=== PATIENT | female | born 1970 | race Caucasian/White ===

== ENCOUNTER 2017-01-13 16:55 | Emergency (ER) | payer MEDICAID ==
[~2017-01-13] VITALS: Ht 172.7 cm; Wt 77.1 kg
[~2017-01-13 16:55] MED LIST: ALPRAZOLAM2 MG PO; ATORVASTATIN CA20 M1 PO; CARAFATE1 GM PO; CETIRIZINE HYDR10 MG OR; COLACE GENERIC100 MG PO; ETODOLAC400 MG PO; HYDRALAZINE HCL10 MG OR; HYDROCHLOROTH12.5 M1 PO; LANSOPRAZOLE15 MG PO; LINZESS290 MCG PO; PROPRANOLOL HCL60 MG PO; TRAMADOL 50MG T1 PAK PO
--- NOTE | 2017-01-13 17:32 | Urgent Treatment Center Report ---
History of Present Issue Date/Time Seen by Provider 01/13/17 1725 Visit Reason Pt arrived:Walked Presenting Problem:PT STATES TWISTING HER R ANKLE ON A STEP AT HER HOUSE AT 1530. STATES TAKING IBUPROFEN IMMEDIATELY AFTERWARDS. STATES SURGERY TO SAME ANKLE TWO YEARS AGO AND WANTS TO BE SURE HARDWARE IS STILL INTACT Location if Accident:Home Onset of symptoms date/time:01/13/17 or onset unknown for: Have you (or family members/close friends) recently traveled outside the [place]? N If Yes, where/when: Have you had exposure to infectious disease within the past month? TB? Other? Specify: Source patient Exam Limitations no limitations Comment 46-year-old female presents today for RIGHT ankle pain. Patient states [facility] And [facility] RIGHT ankle. Patient states this is the same ankle she had surgery on 2 years ago with hardware she is concerned that the hardware might be affected. ALLERGIES Coded Allergies: acetaminophen (From LORTAB) (03/23/16) hydrocodone (From LORTAB) (03/23/16) Home Medications Reported Medications Alprazolam 2 MG PO QID #120 Hydralazine Hcl 10 MG OR BID #60 PROPRANOLOL HCL (Propranolol HCl ER) 60 MG PO DAILY #30 Atorvastatin Calcium 20 MG PO QHS #30 Lansoprazole 15 MG PO DAILY #30 Linaclotide (Linzess 290MCG) 290 MCG PO DAILY #30 Hydrochlorothiazide (Hydrochlorothiazide 12.5MG) 12.5 MG PO DAILY #30 Cetirizine Hcl (Cetirizine Hydrochloride) 10 MG OR DAILY #30 TRAMADOL THP (Tramadol 50MG Tablet Take Home Pack (10)) 50 MG PO Q6HP PRN PAIN #180 Docusate Sodium (Colace 100MG Cap) 100 MG PO BID #60 Sucralfate (Carafate) 1 GM PO BID #60 History Medical History General CAD? No Angina: No VA: No Hypertension? Yes Hyperlipidemia? Yes CHF? No DVT? No PE? No COPD? Yes Asthma? Yes Anemia? No GERD? No Gastric ulcers? No GI Bleed? No Hernia? No Thyroid Problems? No Hypothyroidism? No CVA? No Seizures? No Diabetes? No Renal Insuffiency? No UTI? Yes Stones? No BPH? No GB Disease: Yes Nephritic Syndrome? No Asplenia? No Hepatitis? No Sickle Cell Disease? No Arthritis? No Migraines? No Cataracts? No Glaucoma? No MRSA? No HIV? No TB? No Anxiety? Yes Depression? Yes Cancer? Yes Site: BREAST More? 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 2 or more SIRS Criteria Met? B/P:123/88 MAP:99 Creatinine >2.0? UA output<0.5ml/kg/hr for 2 hrs? Platelet count >100,000? Lactate >2.0mmol/1? INR >1.2 or PTT > than 60 sec? Evidence of Organ Dysfunction? Provider documented clinical suspician of infection? Sepsis Criteria Count: 2 Sepsis Risk: General Appearance normal appearance, no apparent distress Respiratory Status Yes: trachea midline, chest symmetrical, non tender chest. No: respiratory distress. Cardiovascular normal exam, regular rate/rhythm Extremities non-tender, normal range of motion, normal inspection, normal capillary refill, no pedal edema Neurologic alert, normal exam, oriented x 3 Medical Decision Making LABS/Meds/Orders Pt receiving controlled substance in ED? No Results/Orders Orders Procedure Date/time Status STABILIZE JOINT 01/14 1736 Active ANKLE-RT-3 VIEWS 01/13 1718 Active Departure Departure Time of Disposition 1736 Disposition DC Home or Self Care(routine) Clinical Impression Primary Impression: Ankle sprain Qualifiers: Encounter type: initial encounter Involved ligament of ankle: unspecified ligament Laterality: left Qualified Code: S93.402A - Sprain of unspecified ligament of left ankle, initial encounter Condition STABLE Referrals ABENA FAULKNER DPM Patient Instructions Ankle Sprain, DI for Ankle Sprain Additional Instructions Tylenol Motrin as needed for pain Tahir wrap Ice 20 minutes then removed may repeat for comfort Follow-up with orthopedic surgeon Symptoms worsen or do not improve return or be seen in the ER Discharge Counseling Counseled pt/family regarding diagnosis, test results, medications/RX, home care, follow up needs at [id number]
[2017-01-13 17:41] VITALS: BP 123/88
--- NOTE | 2017-01-13 20:15 | RADIOLOGY REPORT PS360 ---
ANKLE-RT-3 VIEWS COMPARISON: None HISTORY: Right ankle pain after twisting injury TECHNIQUE: AP lateral and oblique views FINDINGS: There is mild soft tissue swelling laterally. The medial and lateral malleolus appear intact and the ankle mortise is normal. There is orthopedic hardware in the talus and calcaneus with mild post traumatic and/or postsurgical deformity of the talus. IMPRESSION: Negative for acute fracture
[2017-02-02] MEDS ORDERED: MOTRIN 400MG.400 MG PO (19:40)
== END 2017-01-13 17:47 | disposition home or self-care (01) ==
LOC: UTC 16:55
DX: S93.402A Sprain of unspecified ligament of left ankle, initial encounter (principal); X50.1XXA Overexertion from prolonged static or awkward postures, initial encounter; Y92.9 Unspecified place or not applicable; F17.210 Nicotine dependence, cigarettes, uncomplicated; J44.9 Chronic obstructive pulmonary disease, unspecified; E78.5 Hyperlipidemia, unspecified; I10 Essential (primary) hypertension; Z79.891 Long term (current) use of opiate analgesic

== ENCOUNTER 2017-02-02 18:18 | Emergency (ER) | payer MEDICAID ==
[~2017-02-02] VITALS: Ht 172.7 cm; Wt 77.3 kg
--- NOTE | 2017-02-02 19:07 | Urgent Treatment Center Report ---
History of Present Issue Date/Time Seen by Provider 02/02/171906 Visit Reason Pt arrived:Walked Presenting Problem:PT STATES SHE FELL IN HER KITCHEN INJURING HER RT HAND AND HEAD Location if Accident: Onset of symptoms date/time:02/02/1710/14/1529 or onset unknown for: Have you (or family members/close friends) recently traveled outside the [place]? N If Yes, where/when: Have you had exposure to infectious disease within the past month? TB? Other? Specify: Patient states that she slipped while wearing flip flops in her kitchen and landed on her right hand and wrist and also bumped her head on the floor Denies LOC states that she just hit her head but her arm broke her fall. State that she doesn't have any swelling just hurts when she moves her wrist ALLERGIES Coded Allergies: acetaminophen (From LORTAB) (03/23/16) hydrocodone (From LORTAB) (03/23/16) Home Medications Reported Medications Alprazolam 2 MG PO QID #120 Hydralazine Hcl 10 MG OR BID #60 PROPRANOLOL HCL (Propranolol HCl ER) 60 MG PO DAILY #30 Atorvastatin Calcium 20 MG PO QHS #30 Lansoprazole 15 MG PO DAILY #30 Linaclotide (Linzess 290MCG) 290 MCG PO DAILY #30 Hydrochlorothiazide (Hydrochlorothiazide 12.5MG) 12.5 MG PO DAILY #30 Cetirizine Hcl (Cetirizine Hydrochloride) 10 MG OR DAILY #30 TRAMADOL THP (Tramadol 50MG Tablet Take Home Pack (10)) 50 MG PO Q6HP PRN PAIN #180 Docusate Sodium (Colace 100MG Cap) 100 MG PO BID #60 Sucralfate (Carafate) 1 GM PO BID #60 History Medical History General CAD? No Angina: No PA: No Hypertension? Yes Hyperlipidemia? Yes CHF? No DVT? No PE? No COPD? Yes Asthma? Yes Anemia? No GERD? No Gastric ulcers? No GI Bleed? No Hernia? No Thyroid Problems? No Hypothyroidism? No CVA? No Seizures? No Diabetes? No Renal Insuffiency? No UTI? Yes Stones? No BPH? No GB Disease: Yes Nephritic Syndrome? No Asplenia? No Hepatitis? No Sickle Cell Disease? No Arthritis? No Migraines? No Cataracts? No Glaucoma? No MRSA? No HIV? No TB? No Anxiety? Yes Depression? Yes Cancer? Yes Site: BREAST More? 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 Family History Family HX Diabetes No CAD Yes Hypertension Yes Hyperlipidemia Yes Cancer Yes TB No Social History Smoking Hx Smoker: Current Every Day Smoker Tobacco: Yes Type Cigarettes Packs/day < 1 Pack Alcohol Alcohol: No Review of Systems All Other Systems Reviewed and Negative Comment Pain in right wrist after falling in her kitchen at home Physical Exam Vital Signs Vital Signs Date Time Temp Pulse Resp B/P Pulse O2 O2 Flow FiO2 Ox Delivery Rate 02/02 1844 98.1 79 20 145/93 100 General Appearance normal appearance, no apparent distress Eye Exam - bilateral eye normal exam, bilateral eye PERRL, bilateral eye EOMI Ear, Nose, Throat small bruising noted on left side of forehead Respiratory Status Yes: trachea midline, chest symmetrical, non tender chest. No: respiratory distress. Cardiovascular normal exam, regular rate/rhythm, no peripheral edema Extremities Pain in right wrist area, no bruising no swelling Neurologic alert, normal exam, oriented x 3 Medical Decision Making LABS/Meds/Orders Pt receiving controlled substance in ED? No Results/Orders Orders Procedure Date/time Status UTC STABILIZE JOINT/AREA 02/02 1934 Active HAND-RT 3 VIEWS 02/02 1917 Active Departure Departure Time of Disposition 1935 Disposition DC Home or Self Care(routine) Clinical Impression Primary Impression: Wrist sprain Qualifiers: Encounter type: initial encounter Laterality: right Qualified Code: S63.501A - Unspecified sprain of right wrist, initial encounter Condition STABLE Referrals Keon OWENS,Andres LAFLEUR MD, PANCHO COLON (Family): 2 Days-Call Office Patient Instructions DI for Wrist Sprain Additional Instructions Follow up with family doctor Return if needed *RICE, Rest the extremity, Ice 15-20 minutes 3-4 times daily, Compress- wear the tahir wrap as discussed as much as possible to help reduce swelling and pain, Elevate the extremity when at rest *Tahir wrap is for support and help control swelling, use it except in the shower. Be sure that is not to tight but not to loose either *Elevate when resting *Ibuprofen 600-800mg every 6-8 hours as needed for pain an inflammation. If need something more can take Tylenol in between doses of Ibuprofen to help Immediately follow up for new or worsening of symptoms, or no noticeable improvement over the next 3-5 days Discharge Counseling Counseled pt/family regarding diagnosis, test results, medications/RX, home care, follow up needs Prescriptions Current Visit Scripts Ibuprofen (MOTRIN 400MG) 400 MG PO Q6HP PRN pain #40 TAB at 1940
[2017-02-02 19:43] VITALS: BP 145/93
--- NOTE | 2017-02-03 10:14 | RADIOLOGY REPORT PS360 ---
HAND-RT 3 VIEWS COMPARISON: Right hand 03/23/2016 HISTORY: Right hand pain after fall TECHNIQUE: AP lateral and oblique views FINDINGS: The carpal bones metacarpals and phalanges appear intact with no evidence of fracture. The soft tissues are normal and the no foreign bodies. IMPRESSION: Negative right hand
--- OUTSIDE RECORDS SUMMARY | 2017-02-09 10:05 | External Medical Summary Rpt ---
Author Author [employer], [employer] Organization [employer] Address Unknown Phone Unavailable
--- OUTSIDE RECORDS SUMMARY | 2017-02-09 10:05 | External Medical Summary Rpt | CCD ---
Demographics Preferred Language Malaysian Marital Status Unknown Spiritism Affiliation Unknown Race Unknown Ethnic Group Unknown Author Author , [employer]AM [employer] Address Unknown Phone Immunization No patient found.
--- OUTSIDE RECORDS SUMMARY | 2017-02-09 10:05 | External Medical Summary Rpt | CCD ---
Demographics Preferred Language Trinidadian Marital Status Unknown Jewish Affiliation Unknown Race Unknown Ethnic Group Unknown Author Author , [employer]AM [employer] Address Unknown Phone Immunization No patient found.
== END 2017-02-02 19:44 | disposition home or self-care (01) ==
LOC: UTC 18:18
PROC: 2W3CX1Z Immobilization of Right Lower Arm using Splint (ICD-10-PCS; principal; 2017-02-02)
DX: S63.501A Unspecified sprain of right wrist, initial encounter (principal); W01.0XXA Fall on same level from slipping, tripping and stumbling without subsequent striking against object, initial encounter; Y93.9 Activity, unspecified; Y92.000 Kitchen of unspecified non-institutional (private) residence as the place of occurrence of the external cause; I10 Essential (primary) hypertension; J44.9 Chronic obstructive pulmonary disease, unspecified; F17.210 Nicotine dependence, cigarettes, uncomplicated; E78.5 Hyperlipidemia, unspecified; Z85.3 Personal history of malignant neoplasm of breast; Z79.891 Long term (current) use of opiate analgesic; Z79.899 Other long term (current) drug therapy

== ENCOUNTER → 2017-02-21 | Outpatient (CLI) | payer MEDICAID ==
[~2017-02-21] MED LIST changes: +MOTRIN 400MG.400 MG PO
== END ==
LOC: RT 10:57
DX: R00.0 Tachycardia, unspecified (principal)